=== PATIENT | male | born 1965 ===

== ENCOUNTER 2016-11-28 16:57 | Emergency (ER) | payer SELFPAY ==
[2016-11-28 17:06] VITALS: BP 132/82
--- NOTE | 2016-11-28 17:37 | RAD ---
HISTORY: Headache COMPARISONS: May 30, 2007 TECHNIQUE: Multiple contiguous axial CT scans were obtained of the head without intravenous contrast. FINDINGS: HEMORRHAGE/INFARCT: There is no hemorrhage or acute infarct. MASSES/SHIFT: There is no mass or shift. EXTRA-AXIAL SPACES: There are no extra-axial fluid collections. SULCI AND VENTRICLES: The sulci and ventricles are normal in size and position for the patient's stated age. CEREBRUM: There are no focal parenchymal abnormalities. BRAINSTEM: There are no focal parenchymal abnormalities. CEREBELLUM: There are no focal parenchymal abnormalities. VESSELS: The vessels are grossly normal. PARANASAL SINUSES: The paranasal sinuses are clear. ORBITS: The orbits are unremarkable. BONES AND SOFT TISSUE: No bone or soft tissue abnormalities are noted. OTHER: None IMPRESSION: NO ACUTE INTRACRANIAL PATHOLOGY.
--- NOTE | 2016-11-28 18:48 | ED ---
Raudel Sidhu Billy, scribed for Eren Vidal MD on 11/28/16 at 1718 . Head Injury - HPI Summary HPI Summary: Patient is a 51 year-old male coming to [facility] for evaluation of a head injury at 1600. He was at work at [employer] when a cabinet fell on the left parietal side of his head. Denies any LOC or neck pain. He does have a headache at this time. - History Of Current Complaint Chief Complaint: EDHeadInjury Stated Complaint: HEAD INJURY FROM WORK Time Seen by Provider: 11/28/16 17:14 Hx Obtained From: Patient Mechanism Of Injury: Blunt Trauma Onset/Duration: Started Hours Ago Onset of Pain: Immediate Severity Currently: Moderate Severity Initially: Moderate Pain Intensity: 8 Pain Scale Used: 0-10 Numeric Location of Head Injury: Parietal - left Aggravating Factor(s): Other: - none Alleviating Factor(s): Other: - none Associated Signs And Symptoms: Headache - Allergies/Home Medications Allergies/Adverse Reactions: Allergies Allergy/AdvReac Type Severity Reaction Status Date / Time No Known Allergies Allergy Verified 07/06/12 11:08 PMH/Surg Hx/FS Hx/Imm Hx Endocrine/Hematology History: Denies: Hx Diabetes Cardiovascular History: Reports: Hx Myocardial Infarction Denies: Hx Hypertension Sensory History: Denies: Hx Legally Blind EENT History: Denies: Hx Deafness - Surgical History Surgery Procedure, Year, and Place: Hernia Repair, 2007, [facility] Infectious Disease History: No Infectious Disease History: Denies: Traveled Outside the in Last 30 Days - Family History Known Family History: Positive: Hypertension, Diabetes - Social History Alcohol Use: Occasionally Substance Use Type: Reports: None Smoking Status (MU): Current Every Day Smoker Type: Cigarettes Review of Systems Negative: Fever Negative: Arthralgia, Myalgia Positive: Headache. Negative: Syncope All Other Systems Reviewed And Are Negative: Yes Physical Exam - Summary Physical Exam Summary: VITAL SIGNS: Reviewed. GENERAL: Patient is a well-developed and nourished male who is lying comfortable in the stretcher. Patient is not in any acute respiratory distress. HEAD AND FACE: No signs of trauma. There are no skull depressions or hematomas of the scalp. No ecchymosis, hematomas or skull depressions. No sinus tenderness. EYES: PERRLA, EOMI x 2, No injected conjunctiva, no nystagmus. No photophobia. EARS: Hearing grossly intact. Ear canals and tympanic membranes are within normal limits. MOUTH: Oropharynx within normal limits. NECK: Supple, trachea is midline, no adenopathy, no JVD, no carotid bruit, no c- spine tenderness, neck with full ROM. No meningeal signs, no Kernig's or brudzinskis signs. CHEST: Symmetric, no tenderness at palpation LUNGS: Clear to auscultation bilaterally. No wheezing or crackles. CVS: Regular rate and rhythm, S1 and S2 present, no murmurs or gallops appreciated. ABDOMEN: Soft, non-tender. No signs of distention. No rebound no guarding, and no masses palpated. Bowel sounds are normal. EXTREMITIES: FROM in all major joints, no edema, no cyanosis or clubbing. NEURO: Alert and oriented x 3. No acute neurological deficits. Speech is normal and follows commands. SKIN: Dry and warm Triage Information Reviewed: Yes Vital Signs On Initial Exam: Initial Vitals Temp Pulse Resp BP Pulse Ox 97.6 F 55 18 132/82 98 11/28/16 16:59 11/28/16 16:59 11/28/16 16:59 11/28/16 16:59 11/28/16 16:59 Vital Signs Reviewed: Yes Diagnostics - Vital Signs Vital Signs Temp Pulse Resp BP Pulse Ox 11/28/16 16:59 97.6 F 55 18 132/82 98 - Laboratory Lab Statement: Any lab studies that have been ordered have been reviewed, and results considered in the medical decision making process. - CT Brain CT Interpretation: No Acute Changes CT Interpretation Completed By: Radiologist Re-Evaluation - Re-Evaluation First Eval Re-Evaluation Time: 17:50 Comment: Imaging reviewed. Head Injury Course/Dx Assessment/Plan: Patient is a 51 year-old male coming to [facility] for evaluation of a head injury at 1600. He was at work at [employer] when a cabinet fell on the left parietal side of his head. Denies any LOC or neck pain. He does have a headache at this time. CT brain shows no acute intracranial pathology. The patient is A&Ox3. He has no other complaints. He will be discharged home to follow up with his PCP. He is hemodynamically stable, A&Ox3. I discussed all the findings and test results with the patient. Patient was instructed to return to the emergency room immediately if any of the symptoms return or worsens. Plan of care was discussed with the patient and understands and agrees. All questions were answered at patient satisfaction. There were no further complaints or concerns. Lung exam before discharge: CTA B/L. Good air exchange. No wheezing or crackles heard. CVS: S1 and S2 present. No murmurs appreciated. Patient is alert and oriented x 3. Patient is hemodynamically stable. Patient will be discharged home with follow up PCP in the next 2-3 days - Diagnoses Differential Diagnosis/HQI/PQRI: Cerebral Contusion, Concussion Without LOC, Contusion, Intracranial Bleed Provider Diagnoses: Head contusion Discharge - Discharge Plan Condition: Stable Disposition: HOME Patient Education Materials: Scalp Contusion in Adults (ED) Forms: *Work Release Referrals: Valery Baptiste, [employer] [Primary Care Provider] - The documentation as recorded by the Raudel luo Billy accurately reflects the service I personally performed and the decisions made by me, Eren Vidal MD.
== END 2016-11-28 17:50 | disposition home or self-care (01) ==
LOC: ED 16:57
DX: S00.93XA Contusion of unspecified part of head, initial encounter (principal); W20.8XXA Other cause of strike by thrown, projected or falling object, initial encounter; Y92.9 Unspecified place or not applicable; Y99.0 Civilian activity done for income or pay; R51 Headache; I25.2 Old myocardial infarction; F17.210 Nicotine dependence, cigarettes, uncomplicated
CPT/HCPCS: 70450; 99282

== ENCOUNTER 2016-12-29 15:40 | Emergency (ER) | payer SELFPAY ==
[2016-12-29 16:32] VITALS: BP 137/90
--- NOTE | 2016-12-29 20:54 | UC ---
Back Pain HPI - HPI Summary HPI Summary: Patient presents to with CC of back pain. This is a WC issue. He states he is unable to stand, sit, or twist and is in 10/10 constant pain. Pain began last month after a shelving unit fell onto his back. He has been in constant pain ever since and states he cannot find anyone or anything to help his sxs. He is looking for a back specialist. He notes to numbness intermittently and will happen suddenly. - History of Current Complaint Chief Complaint: UCBackPain Stated Complaint: NECK, BACK& HIP PAIN WC Time Seen by Provider: 12/29/16 16:36 Hx Obtained From: Patient Onset/Duration: Sudden Onset Severity Initially: Mild Severity Currently: Mild Pain Intensity: 10 Pain Scale Used: 0-10 Numeric Back Pain: Is Diffuse - from neck to lumbar spine Aggravating: Movement, Lifting, Bending, Walking, Cough Alleviating: Nothing Related History: Occupational Injury - Risk Factors AAA Risk Factors: Negative TAD Risk Factors: Negative Cauda Equina Risk Factors: Lower Extemity Numbness, Lower Extremity Weakness Epidural Abscess Risk Factors: Lower Extemity Numbness, Lower Extremity Weakness - Allergies/Home Medications Allergies/Adverse Reactions: Allergies Allergy/AdvReac Type Severity Reaction Status Date / Time No Known Allergies Allergy Verified 12/29/16 16:32 PMH/Surg Hx/FS Hx/Imm Hx Previously Healthy: Yes - Surgical History Surgical History: Yes Surgery Procedure, Year, and Place: Hernia Repair, 2007, [facility] - Family History Known Family History: Positive: Hypertension, Diabetes - Social History Occupation: Unemployed Lives: With Family Alcohol Use: Occasionally Substance Use Type: None Smoking Status (MU): Light Every Day Tobacco Smoker Type: Cigarettes Amount Used/How Often: 1/3 ppd Review of Systems Constitutional: Negative Skin: Negative Respiratory: Negative Cardiovascular: Negative Motor: Decreased ROM, Weakness Neurovascular: Decreased Sensation Musculoskeletal: Arthralgia, Decreased ROM, Myalgia Neurological: Negative Psychological: Negative All Other Systems Reviewed And Are Negative: Yes Physical Exam Triage Information Reviewed: Yes Appearance: Ill-Appearing, Pain Distress Vital Signs: Initial Vital Signs Temp 98.2 F 12/29/16 16:24 Pulse 70 12/29/16 16:24 Resp 16 12/29/16 16:24 BP 137/90 12/29/16 16:24 Pulse Ox 100 12/29/16 16:24 Vital Signs Reviewed: Yes Respiratory Exam: Normal Respiratory: Positive: Chest non-tender, Lungs clear Cardiovascular Exam: Normal Cardiovascular: Positive: RRR Musculoskeletal: Positive: Strength Limited @ - twisting, flexion and extension of the hips, ROM Limited @ - throughout back Psychological Exam: Normal Psychological: Positive: Normal Response To Family Skin Exam: Normal Back Pain Course/Dx - Course Course Of Treatment: Patient is a WC case with CC of diffuse back pain, numbness and tingling, with weakness throughout. He is unable fully extend at the hips, flex at the hips, twist or use his arms in any ROM. He is referred to Dr. Garnica based on the severity of his sxs. Gabapentin given as rx. - Differential Dx/Diagnosis Differential Diagnosis/HQI/PQRI: Fracture, Herniated Disc, Strain, Sprain Provider Diagnoses: Back Pain Discharge - Discharge Plan Condition: Stable Disposition: HOME Prescriptions: Gabapentin CAP(*) [Neurontin 300 CAP(*)] 300 mg PO BEDTIME #30 cap Patient Education Materials: Crush Injury (ED) Referrals: Ernie Garnica MD [Medical Doctor] - Non Staff,Doctor [Primary Care Provider] - Additional Instructions: Follow up with Dr. Garnica. Take the Gabapentin at bedtime Moist heat to the back Ibuprofen 600mg three times daily
== END 2016-12-29 16:57 | disposition home or self-care (01) ==
LOC: UCCORT 15:40
DX: M54.9 Dorsalgia, unspecified (principal); F17.210 Nicotine dependence, cigarettes, uncomplicated
CPT/HCPCS: 99212; G0463